=== PATIENT | female | born 1985 | race Caucasian/White ===

== ENCOUNTER 2016-10-16 17:13 | Emergency (ER) | payer BC ==
[~2016-10-16 17:13] MED LIST: MONTELUKAST SOD10 MG PO; PROTONIX40 MG PO; SYNTHROID100 MCG PO; TRAMADOL HCL50 MG PO
[2016-10-16 20:37] LABS: HEMOGLOBIN 12.2 gm/dl (12.3-15.3); RED BLOOD COUNT 3.92 M/UL (4.00-5.10); WHITE BLOOD COUNT 8.4 K/UL (4.5-11.0)
[2016-10-16 20:53] LABS: BUN/CREATININE RATIO 16 (0-10)
== END 2016-10-17 02:58 | disposition home or self-care (01) ==
LOC: ER1 17:13
PROVIDERS: Physician Assistant
DX: R07.9 Chest pain, unspecified (principal); R06.02 Shortness of breath; R11.0 Nausea; Z87.442 Personal history of urinary calculi; Z88.0 Allergy status to penicillin; Z88.2 Allergy status to sulfonamides; Z88.1 Allergy status to other antibiotic agents; Z90.49 Acquired absence of other specified parts of digestive tract; E07.9 Disorder of thyroid, unspecified; Z79.899 Other long term (current) drug therapy
CPT/HCPCS: 36415; 71010; 80053; 83735; 84439; 84443; 84484; 84703; 85025; 85379; 93005; 96374; 99285; J1885; J7050; Q9963

== ENCOUNTER 2020-08-30 14:58 | Outpatient (CLI) | payer BC, OTHER ==
[~2020-08-30 14:58] MED LIST changes: +BUSPIRONE HCL5 MG PO; +CYCLOBENZAPRINE5 MG PO; +MOBIC15 MG PO; +PERCOCET 5/325 T1 EA PO; +PHENERGAN 25 MG25 M1 PO; +ZOFRAN4 MG PO
[2020-10-31] MEDS ORDERED: HYDROCODONE-AC1 EAC1 PO (12:35)
[2020-10-31] MEDS ORDERED: DOCUSATE SODIU100 MG PO (12:35)
[2020-10-31] MEDS ORDERED: IBUPROFEN800 MG PO (12:35)
== END 2020-08-30 17:09 | disposition home or self-care (01) ==
LOC: GENOP 14:58
DX: O62.9 Abnormality of forces of labor, unspecified (principal); Z3A.30 30 weeks gestation of pregnancy
CPT/HCPCS: 81001; 82731; G0463

== ENCOUNTER 2020-10-30 13:00 | Outpatient (CLI) | payer BC, OTHER ==
[2020-10-30 13:37] LABS: RED BLOOD COUNT 4.03 M/UL (4.00-5.10); WHITE BLOOD COUNT 8.8 K/UL (4.5-11.0)
[2020-10-31] MEDS ORDERED: PRENATAL VITAM1 EAC8 PO (06:28)
[2020-10-31] MEDS ORDERED: CLARITIN10 M2 PO (06:29)
[2020-10-31] MEDS ORDERED: PROTONIX40 MG PO (06:29)
[2020-10-31] MEDS ORDERED: TYLENOL EXTRA500 MG PO (06:31)
[2020-10-31] MEDS ORDERED: DOCUSATE SODIU100 MG PO (12:35)
[2020-10-31] MEDS ORDERED: IBUPROFEN800 MG PO (12:35)
[2020-10-31] MEDS ORDERED: HYDROCODONE-AC1 EAC1 PO (12:35)
== END 2020-10-30 14:10 | disposition home or self-care (01) ==
LOC: GENOP 13:00
PROVIDERS: Obstetrics & Gynecology
DX: Z01.812 Encounter for preprocedural laboratory examination (principal); Z20.822 Contact with and (suspected) exposure to COVID-19
CPT/HCPCS: 36415; 81001; 85025; U0002

== ENCOUNTER 2020-10-31 05:28 | Inpatient (IN) | payer BC, OTHER ==
[~2020-10-31] VITALS: Ht 175.3 cm; Wt 110.7 kg
[2020-10-31] MEDS ORDERED: PRENATAL VITAM1 EAC8 PO (06:28)
[2020-10-31] MEDS ORDERED: PROTONIX40 MG PO (06:29)
[2020-10-31] MEDS ORDERED: CLARITIN10 M2 PO (06:29)
[2020-10-31] MEDS ORDERED: TYLENOL EXTRA500 MG PO (06:31)
[2020-10-31] MEDS ORDERED: IBUPROFEN800 MG PO (12:35)
[2020-10-31] MEDS ORDERED: DOCUSATE SODIU100 MG PO (12:35)
[2020-10-31] MEDS ORDERED: HYDROCODONE-AC1 EAC1 PO (12:35)
[2020-11-01 06:14] LABS: HEMOGLOBIN 10.5 gm/dl (12.3-15.3)
== END 2020-11-01 16:46 | disposition home or self-care (01) | DRG 788 ==
LOC: OB 05:28
PROVIDERS: ADMIT Obstetrics & Gynecology
PROC: 10D00Z1 Extraction of Products of Conception, Low, Open Approach (ICD-10-PCS; principal; 2020-10-31 07:30)
DX: O34.211 Maternal care for low transverse scar from previous cesarean delivery (principal); O99.214 Obesity complicating childbirth; Z3A.39 39 weeks gestation of pregnancy; Z37.0 Single live birth; E66.9 Obesity, unspecified; Z88.0 Allergy status to penicillin
CPT/HCPCS: 36415; 81001; 82800; 85014; 85018; 85025; 90715; 96372; C9113; J0690; J1200; J2210; J2274; J2590; J7120; U0002

== ENCOUNTER → 2021-06-14 | Outpatient (CLI) | payer BC, OTHER ==
[~2021-06-14] MED LIST changes: +CLARITIN10 M2 PO; +DOCUSATE SODIU100 MG PO; +HYDROCODONE-AC1 EAC1 PO; +IBUPROFEN800 MG PO; +PRENATAL VITAM1 EAC8 PO; +TYLENOL EXTRA500 MG PO
== END ==
LOC: EXRD 14:58
DX: R31.9 Hematuria, unspecified (principal)
CPT/HCPCS: 74018

== ENCOUNTER → 2021-11-14 | Outpatient (CLI) | payer BC, OTHER | LOC: EXRD 08:25 | DX: M54.16 Radiculopathy, lumbar region (principal); M25.551 Pain in right hip | CPT/HCPCS: 72100; 73502 ==